=== PATIENT | male | born 1970 | race American Indian/Alaskan Native ===

== ENCOUNTER 2016-09-24 12:50 | Emergency (ER) | payer BC, OTHER ==
[2016-09-24 13:22] VITALS: BP 113/75
[2016-09-24] MEDS ORDERED: Ketorolac 30 MG/ML SDV IVPUSH ONE (14:07)
[2016-09-24] MEDS ORDERED: Sodium Chloride 0.9% 1,000 ML IV ONE (14:07)
[2016-09-24] MEDS ORDERED: cefTRIAXone 1 GM in Sodium Chloride 0.9% 50 ML IV ONE (15:25)
--- NOTE | 2016-09-24 16:26 | EDM.PDOC ---
Scribed by Jenifer Ovalle 09/24/16 1626 for Prince Sheehan MD ED HPI GENERAL MEDICAL PROBLEM - General Chief Complaint: Genitourinary Problem Stated Complaint: [place] PAIN [phone] Time Seen by Provider: 09/24/16 13:20 Source of Information: Reports: Patient, RN, RN Notes Reviewed History Limitations: Reports: No Limitations - History of Present Illness INITIAL COMMENTS - FREE TEXT/NARRATIVE: Complaint of possible kidney stones. Onset of left flank pain that radiates to left lower abdomen on Sunday morning, 09/23/16. On/off fever or chills. Denies injury. Admits to small amount of blood in urine, mild nausea. Denies vomiting, diarrhea or constipation. Severity: Severe Improves with: Reports: None Worsens with: Reports: None Associated Symptoms: Reports: No Other Symptoms - Related Data Allergies Allergy/AdvReac Type Severity Reaction Status Date / Time No Known Allergies Allergy Verified 09/24/16 13:29 Home Meds: Home Meds Albuterol Sulfate [Ventolin Hfa] 8 gm NEB 09/24/16 [History] Loratadine/Pseudoephedrine [Claritin-D 24 Hour Tablet] 1 tab PO DAILY 09/24/16 [ History] Past Medical History Respiratory History: Reports: COPD Dermatologic History: Reports: Other (See Below) (environmental allergies) - Past Surgical History GI Surgical History: Reports: Other (See Below) (hernia repair) ED ROS GENERAL - Review of Systems Review Of Systems: ROS reveals no pertinent complaints other than HPI. ED EXAM, RENAL/ - Physical Exam Exam: See Below Exam Limited By: No Limitations General Appearance: Alert, WD/WN, No Apparent Distress Respiratory/Chest: No Respiratory Distress, Lungs Clear, Normal Breath Sounds, No Accessory Muscle Use, Chest Non-Tender Cardiovascular: Normal Peripheral Pulses, Regular Rate, Rhythm, No Edema, No Gallop, No JVD, No Murmur, No Rub GI/Abdominal: Other (Mild LLQ tenderness, otherwise normal.) Back Exam: Other (bilateral CVA tenderness left greater than right. Full ROM.) Extremities: Normal Inspection Neurological: Alert Psychiatric: Normal Affect, Normal Mood Skin Exam: Warm, Dry, Intact, Normal Color, No Rash Lymphatic: No Adenopathy Course - Vital Signs Last Recorded V/S: Last Vital Signs Temp 37.1 C 09/24/16 13:20 Pulse 110 H 09/24/16 13:20 Resp 20 09/24/16 13:20 BP 113/75 09/24/16 13:20 Pulse Ox 99 09/24/16 13:20 - Orders/Labs/Meds Orders: Active Orders 24 hr Category Date Time Status CBC WITH AUTO DIFF [HEME] Stat Lab 09/24/16 15:58 Received COMPREHENSIVE METABOLIC PN,CMP [CHEM] Stat Lab 09/24/16 15:58 Received CULTURE URINE [RM] Stat Lab 09/24/16 13:22 Received Labs: Laboratory Tests 09/24/16 09/24/16 Range/Units 13:22 13:22 Urine Color Brown (YELLOW) Urine Appearance Turbid (CLEAR) Urine pH 5.5 (5.0-9.0) Ur Specific [place] >= 1.030 (1.005-1.030) Urine Protein >=300 H (NEGATIVE) Urine Glucose (UA) Negative (NEGATIVE) Urine Ketones Trace H (NEGATIVE) Urine Occult Blood Large H (NEGATIVE) Urine Nitrite Negative (NEGATIVE) Urine Bilirubin Small H (NEGATIVE) Urine Urobilinogen 1.0 (0.2-1.0) mg/dL Ur Leukocyte Esterase Trace H (NEGATIVE) Urine RBC >100 H /HPF Urine WBC >100 H (0-5/HPF) /HPF Ur Epithelial Cells Few /HPF Amorphous Sediment Few (0/HPF) /HPF Urine Bacteria Few (0-FEW/HPF) /HPF Urine Mucus Many H /LPF Urine Opiates Screen Negative (NEGATIVE) Ur Oxycodone Screen Negative (NEGATIVE) Urine Methadone Screen Negative (NEGATIVE) Ur Barbiturates Screen Negative (NEGATIVE) U Tricyclic Antidepress Negative (NEGATIVE) Ur Phencyclidine Scrn Negative (NEGATIVE) Ur Amphetamine Screen Negative (NEGATIVE) U Methamphetamines Scrn Negative (NEGATIVE) Urine MDMA Screen Negative (NEGATIVE) U Benzodiazepines Scrn Negative (NEGATIVE) Urine Cocaine Screen Negative (NEGATIVE) U Marijuana (THC) Screen Positive H (NEGATIVE) Meds: Medications Discontinued Medications Generic Name Dose Route Start Last Admin Trade Name Freq PRN Reason Stop Dose Admin Sodium Chloride 1,000 mls @ 999 mls/hr 09/24/16 14:07 09/24/16 14:21 Normal Saline IV 09/24/16 15:07 999 mls/hr .BOLUS ONE Administration Ceftriaxone Sodium 1 gm/ 50 mls @ 100 mls/hr 09/24/16 15:25 09/24/16 15:39 Sodium Chloride IV 09/24/16 15:54 100 mls/hr ONETIME ONE Administration Ketorolac Tromethamine 30 mg 09/24/16 14:07 09/24/16 14:21 Toradol IVPUSH 09/24/16 14:08 30 mg ONETIME ONE Administration - Radiology Interpretation Free Text/Narrative:: CT abdomen/pelvis: Per rad report reveals right nephrolithiasis without urinary tract obstruction. Normal appendix. No diverticulitis. Departure - Departure Time of Disposition: 16:23 Disposition: Home, Self-Care 01 Condition: Good Clinical Impression: Kidney stone, Hematuria UTI (urinary tract infection) Qualifiers: Urinary tract infection type: site unspecified Hematuria presence: with hematuria Qualified Code(s): N39.0 - Urinary tract infection, site not specified ; R31.9 - Hematuria, unspecified - Discharge Information Instructions: Kidney Stones, [id number], Urinary Tract Infection, Adult, Hematuria, Adult Forms: ED Department Discharge Additional Instructions: RX: Cephalexin 500mg. Drink plenty of water. Follow up in clinic in 3 to 4 days for urine recheck. Return to ER if you develop, fever or uncontrolled pain. - My Orders Last 24 Hours: My Active Orders 09/24/16 13:22 CULTURE URINE [RM] Stat 09/24/16 15:58 CBC WITH AUTO DIFF [HEME] Stat COMPREHENSIVE METABOLIC PN,CMP [CHEM] Stat - Assessment/Plan Last 24 Hours: My Active Orders 09/24/16 13:22 CULTURE URINE [RM] Stat 09/24/16 15:58 CBC WITH AUTO DIFF [HEME] Stat COMPREHENSIVE METABOLIC PN,CMP [CHEM] Stat I have read and agree with the documentation that has been completed regarding this visit. By signing this record, I attest that the documentation was completed in my physical presence and is an accurate record of the encounter.
[2016-09-24 16:46] LABS: CHLORIDE,CL 109 mmol/L (101-111); SODIUM,NA 140 mmol/L (135-145)
== END 2016-09-24 16:35 | disposition home or self-care (01) ==
LOC: DL.ED 12:50
DX: N20.0 Calculus of kidney (principal); N39.0 Urinary tract infection, site not specified; J44.9 Chronic obstructive pulmonary disease, unspecified; Z79.899 Other long term (current) drug therapy
CPT/HCPCS: 36415; 74176; 80053; 80305; 81001; 85025; 87086; 87088; 87186; 96361; 96365; 99284; J0696; J1885; J7030; J7050

== ENCOUNTER 2016-10-20 17:00 | Emergency (ER) | payer OTHER ==
[2016-10-20 18:57] LABS: CHLORIDE,CL 102 mmol/L (101-111); SODIUM,NA 136 mmol/L (135-145)
[2016-10-20] MEDS ORDERED: Ondansetron 4 MG/2 ML SDV IV ONE (19:42)
[2016-10-20] MEDS ORDERED: HYDROmorphone 1 MG/ML Syringe IVPUSH ONE ×2 (19:42→20:53)
[2016-10-20] MEDS ORDERED: Sodium Chloride 0.9% 1,000 ML IV ONE ×2 (19:42→20:55)
--- NOTE | 2016-10-20 19:49 | EDM.PDOC ---
ED HPI GENERAL MEDICAL PROBLEM - General Chief Complaint: Fever Stated Complaint: ABD/LOWER BACK PAIN, [place]ILL[place], [id number] Time Seen by Provider: 10/20/16 19:44 Source of Information: Reports: Patient, Family History Limitations: Reports: No Limitations - History of Present Illness INITIAL COMMENTS - FREE TEXT/NARRATIVE: been having this problem past few weeks been here & [facility] was told needs urology referral but still don't have. today got worse with kidney pain F/C. 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 Lower Back Pain Score (Numeric/FACES): 6 - Related Data Allergies Allergy/AdvReac Type Severity Reaction Status Date / Time No Known Allergies Allergy Verified 10/20/16 17:30 Home Meds: Home Meds Albuterol Sulfate [Ventolin Hfa] 8 gm NEB PRN 09/24/16 [History] Loratadine/Pseudoephedrine [Claritin-D 24 Hour Tablet] 1 tab PO DAILY 09/24/16 [ History] Hydrocodone/Acetaminophen [[place] 5-325] 1 tab PO Q4H PRN 10/20/16 [History] Ibuprofen 800 mg PO Q8H PRN 10/20/16 [History] Past Medical History HEENT History: Reports: Allergic Rhinitis, Impaired Vision, Sinusitis Respiratory History: Reports: COPD Genitourinary History: Reports: Pyelonephritis Dermatologic History: Reports: Other (See Below) - Infectious Disease History Infectious Disease History: Reports: Chicken Pox - Past Surgical History GI Surgical History: Reports: Other (See Below) (hernia repair) Social & Family History - Tobacco Use Smoking Status *Q: Former Smoker Used Tobacco, but Quit: Yes Month Tobacco Last Used: 1999 Second Hand Smoke Exposure: No - Caffeine Use Caffeine Use: Reports: None - Alcohol Use Days Per Week of Alcohol Use: 1 Number of Drinks Per Day: 6 Total Drinks Per Week: 6 - Recreational Drug Use Recreational Drug Use: No ED ROS GENERAL - Review of Systems Review Of Systems: ROS reveals no pertinent complaints other than HPI. ED EXAM, RENAL/ - Physical Exam Exam: See Below Exam Limited By: No Limitations General Appearance: Alert, WD/WN, Mild Distress, Other (kidney pain) Ears: Hearing Grossly Normal Throat/Mouth: Normal Voice, No Airway Compromise Head: Atraumatic Neck: Non-Tender, Full Range of Motion Respiratory/Chest: No Respiratory Distress Cardiovascular: Regular Rate, Rhythm GI/Abdominal: Soft, Non-Tender. No: Guarding, Rigid, Rebound Back Exam: CVA Tenderness (L), CVA Tenderness (R) Neurological: Alert, Oriented, Normal Cognition, Normal Gait, No Motor/Sensory Deficits Psychiatric: Flat Affect Skin Exam: Warm, Dry, Normal Color Lymphatic: No Adenopathy Course - Vital Signs Last Recorded V/S: Last Vital Signs Temp 38.4 C H 10/20/16 20:49 Pulse 101 H 10/20/16 20:04 Resp 20 10/20/16 20:04 BP 137/89 10/20/16 20:04 Pulse Ox 98 10/20/16 20:04 - Orders/Labs/Meds Orders: Active Orders 24 hr Category Date Time Status CULTURE BLOOD [BC] Stat Lab 10/20/16 18:25 Received CULTURE BLOOD [BC] Stat Lab 10/20/16 18:30 Received CULTURE URINE [RM] Stat Lab 10/20/16 17:35 Received Blood Culture x2 Reflex Set [OM.PC] Stat Oth 10/20/16 18:31 Ordered Labs: Laboratory Tests 10/20/16 10/20/16 10/20/16 Range/Units 17:35 18:25 18:25 WBC 16.8 H (5.0-10.0) 10^3/uL RBC 4.60 (4.6-6.2) 10^6/uL Hgb 13.6 L (14.0-18.0) g/dL Hct 40.3 (40.0-54.0) % MCV 87.6 (80-100) fL MCH 29.6 (27.0-34.0) pg MCHC 33.7 (33.0-35.0) g/dL Plt Count 246 (150-450) 10^3/uL Neut % (Auto) 85.8 H (42.2-75.2) % Lymph % (Auto) 6.2 L (20.5-50.1) % [place] % (Auto) 7.2 (2-8) % Eos % (Auto) 0.6 L (1.0-3.0) % Baso % (Auto) 0.2 (0.0-1.0) % Sodium 136 (135-145) mmol/L Potassium 4.2 (3.6-5.0) mmol/L Chloride 102 (101-111) mmol/L Carbon Dioxide 20.0 L (21.0-31.0) mmol/L Anion Gap 18.2 BUN 15 (7-18) mg/dL Creatinine 1.0 (0.6-1.3) mg/dL Est Cr Clr Drug Dosing TNP Estimated GFR (MDRD) > 60 BUN/Creatinine Ratio 15.00 Glucose 97 (74-105) mg/dL Lactic Acid (0.5-2.2) mmol/L Calcium 9.2 (8.4-10.2) mg/dl Total Bilirubin 1.9 H (0.2-1.0) mg/dL AST 32 (10-42) IU/L ALT 51 (10-60) IU/L Alkaline Phosphatase 121 (42-121) IU/L Total Protein 7.4 (6.7-8.2) g/dl Albumin 4.0 (3.2-5.5) g/dl Globulin 3.4 Albumin/Globulin Ratio 1.18 Urine Color Yellow (YELLOW) Urine Appearance Slightly cloudy (CLEAR) Urine pH 8.5 (5.0-9.0) Ur Specific [place] 1.020 (1.005-1.030) Urine Protein 30 H (NEGATIVE) Urine Glucose (UA) Negative (NEGATIVE) Urine Ketones 15 H (NEGATIVE) Urine Occult Blood Trace-intact H (NEGATIVE) Urine Nitrite Positive H (NEGATIVE) Urine Bilirubin Negative (NEGATIVE) Urine Urobilinogen 0.2 (0.2-1.0) mg/dL Ur Leukocyte Esterase Small H (NEGATIVE) Urine RBC 5-10 H /HPF Urine WBC Semi-packed H (0-5/HPF) /HPF Ur Epithelial Cells Moderate H /HPF Urine Bacteria Many H (0-FEW/HPF) /HPF 10/20/16 Range/Units 18:25 WBC (5.0-10.0) 10^3/uL RBC (4.6-6.2) 10^6/uL Hgb (14.0-18.0) g/dL Hct (40.0-54.0) % MCV (80-100) fL MCH (27.0-34.0) pg MCHC (33.0-35.0) g/dL Plt Count (150-450) 10^3/uL Neut % (Auto) (42.2-75.2) % Lymph % (Auto) (20.5-50.1) % [place] % (Auto) (2-8) % Eos % (Auto) (1.0-3.0) % Baso % (Auto) (0.0-1.0) % Sodium (135-145) mmol/L Potassium (3.6-5.0) mmol/L Chloride (101-111) mmol/L Carbon Dioxide (21.0-31.0) mmol/L Anion Gap BUN (7-18) mg/dL Creatinine (0.6-1.3) mg/dL Est Cr Clr Drug Dosing Estimated GFR (MDRD) BUN/Creatinine Ratio Glucose (74-105) mg/dL Lactic Acid 0.7 (0.5-2.2) mmol/L Calcium (8.4-10.2) mg/dl Total Bilirubin (0.2-1.0) mg/dL AST (10-42) IU/L ALT (10-60) IU/L Alkaline Phosphatase (42-121) IU/L Total Protein (6.7-8.2) g/dl Albumin (3.2-5.5) g/dl Globulin Albumin/Globulin Ratio Urine Color (YELLOW) Urine Appearance (CLEAR) Urine pH (5.0-9.0) Ur Specific [place] (1.005-1.030) Urine Protein (NEGATIVE) Urine Glucose (UA) (NEGATIVE) Urine Ketones (NEGATIVE) Urine Occult Blood (NEGATIVE) Urine Nitrite (NEGATIVE) Urine Bilirubin (NEGATIVE) Urine Urobilinogen (0.2-1.0) mg/dL Ur Leukocyte Esterase (NEGATIVE) Urine RBC /HPF Urine WBC (0-5/HPF) /HPF Ur Epithelial Cells /HPF Urine Bacteria (0-FEW/HPF) /HPF Meds: Medications Discontinued Medications Generic Name Dose Route Start Last Admin Trade Name Freq PRN Reason Stop Dose Admin Acetaminophen 325 mg 10/20/16 20:12 10/20/16 20:19 Tylenol PO 10/20/16 20:13 325 mg NOW ONE Administration Hydromorphone HCl 1 mg 10/20/16 19:42 10/20/16 19:59 Dilaudid IVPUSH 10/20/16 19:43 1 mg ONETIME ONE Administration Hydromorphone HCl 1 mg 10/20/16 20:53 10/20/16 21:03 Dilaudid IVPUSH 10/20/16 20:54 1 mg ONETIME ONE Administration Sodium Chloride 1,000 mls @ 999 mls/hr 10/20/16 19:42 10/20/16 19:58 Normal Saline IV 10/20/16 20:42 999 mls/hr .BOLUS ONE Administration Ciprofloxacin/Dextrose 400 mg/ 200 mls @ 200 mls/hr 10/20/16 20:53 10/20/16 21:12 Premix IV 10/20/16 21:52 200 mls/hr ONETIME ONE Administration Sodium Chloride 1,000 mls @ 999 mls/hr 10/20/16 20:55 10/20/16 21:03 Normal Saline IV 10/20/16 21:55 999 mls/hr .BOLUS ONE Administration Ondansetron HCl 4 mg 10/20/16 19:42 10/20/16 19:59 Zofran IV 10/20/16 19:43 4 mg ONETIME ONE Administration - Re-Assessments/Exams Free Text/Narrative Re-Assessment/Exam: 10/20/16 21:28 RESULTS DISCUSSED WITH PT. Departure - Departure Time of Disposition: 22:35 Disposition: Home, Self-Care 01 Condition: Good Clinical Impression: UTI, Urinary tract infectious disease - Discharge Information Instructions: Urinary Tract Infection, Adult, [id number] Forms: ED Department Discharge Additional Instructions: 1) drink lots of liquids 2) see clinic for urology follow up 3) recheck as needed rx given; bactrim DS bid x 20 vicodin 5/325mg bid prn x 12
[2016-10-20] MEDS ORDERED: Acetaminophen 325 MG Tab PO ONE (20:12)
[2016-10-20] MEDS ORDERED: Ciprofloxacin in D5W 400 MG in Premix Bag 1 BAG IV ONE ×2 (20:53)
[2016-10-21 01:18] VITALS: BP 129/89
== END 2016-10-20 23:11 | disposition home or self-care (01) ==
LOC: DL.ED 17:00
DX: N39.0 Urinary tract infection, site not specified (principal); J44.9 Chronic obstructive pulmonary disease, unspecified; Z87.891 Personal history of nicotine dependence; Z79.899 Other long term (current) drug therapy
CPT/HCPCS: 36415; 80053; 81001; 83605; 85025; 87040; 87086; 96365; 96366; 96368; 96375; 96376; 99283; A9270; J0744; J1170; J2405; J7030; 87088; 87186